=== PATIENT | male | born 1990 | race Caucasian/White ===

== ENCOUNTER → 2018-09-20 | Day surgery (SDC) | payer OTHER ==
[2018-09-17 12:28] LABS: BASOPHILS % 0.2 % (0.0-1.0); EOSINOPHILS # (AUTO) 0.1 (0.0-0.4); EOSINOPHILS % 2.1 % (0.0-6.0); HEMATOCRIT 43.6 % (38.2-49.6); HEMOGLOBIN 15.2 g/dL (14.0-18.0); LYMPHOCYTES # (AUTO) 2.1 (1.0-3.2); LYMPHOCYTES % 37.6 % (18.0-39.1); MEAN CORPUSCULAR HEMOGLOBIN 30.8 pg (28-32); MEAN CORPUSCULAR HGB CONC 34.9 g/dL (31-35); MEAN CORPUSCULAR VOLUME 88.4 fL (81-99); MONOCYTES # (AUTO) 0.6 (0.2-0.8); MONOCYTES % 10.3 % (4.4-11.3); NEUTROPHILS # (AUTO) 2.8 (2.1-6.9); NEUTROPHILS % 49.6 % (38.7-80.0); PLATELET COUNT 246 x10e3/uL (140-360); RED BLOOD COUNT 4.93 x10e6/uL (4.3-5.7); RED CELL DISTRIBUTION WIDTH 12.2 % (11.7-14.4)
[2018-09-17 13:07] LABS: BLOOD UREA NITROGEN 13 mg/dL (7-26); BUN/CREATININE RATIO 15 (6-25); CALCIUM 9.4 mg/dL (8.4-10.2); CARBON DIOXIDE 29 mmol/L (22-29); CHLORIDE 100 mmol/L (98-107); CREATININE, SERUM 0.88 mg/dL (0.72-1.25); EST GLOMERULAR FILTRATION RATE > 60 ML/MIN (60-); GLUCOSE 84 mg/dL (74-118); SODIUM 137 mmol/L (136-145)
[~2018-09-20] MED LIST: ACETAMINOPHEN500 M1 PO; BUPIVACAINE 0.5%/EPI 30 ML SDV INJ ONE; DEXAMETHASONE SOD PHOS INJ 4 MG/ML VIAL ONE; FENTANYL CITRATE/PF 100MCG/2 ML INJ ONE; IBUPROFEN200 MG PO; KETOROLAC TROMETHAMINE 30 MG/ML VIAL ONE; LIDOCAINE HCL 2% LOCAL INJ 5 ML SDV VIAL INJ ONE; MIDAZOLAM HCL 2 MG/2 ML VIAL ONE; ONDANSETRON HCL INJ 2MG/ML 2ML 2 MG/ML VIAL ONE; PROPOFOL IV EMULSION 10 MG/ML 20 ML VIAL ONE; ROCURONIUM BROMIDE 10 MG/ML 5ML VIAL ONE; SEVOFLURANE INHAL SOLN 250 ML PEN BTL ONE
--- OUTSIDE RECORDS SUMMARY | 2018-09-20 07:13 | XMS REPORT | Clinical Summary ---
Author Author Carlos Robledo Organization [facility] Address Unknown Phone Unavailable Care Team Providers Care Cloth Bleaching Supervisor Name Role Phone PCP Unavailable Allergies Not on File Medications Not on file Active Problems Not on file Encounters Care Team Description Date Type Specialty 05/09/2018 Clinical Corporate Wellness Support after 09/19/2017 Immunizations Name Dates Previously Given Next Due FLUCELVAX QUAD PF (0.5mL 05/09/2018 syringe) Social History Date Tobacco Use Types Packs/Day Years Used Never Assessed Sex Assigned at Date Recorded Not on file Industry Job Start Date Occupation Not on file Not on file Not on file Travel End Travel History Travel Start No recent travel history available. Last Filed Vital Signs Not on file Plan of Treatment Health Maintenance Due Date Last Done Comments INFLUENZA VACCINE Completed 05/09/2018 Results Not on fileafter 09/19/2017 Insurance Payer Benefit Subscriber ID Type Phone Address Plan / Group BCBS BCBS xxxxxxxxxxxx PPO CHOICE PPO/AVERY VAZQUEZ PPO Advance Directives Patient has advance care planning documents on file. For more information, robbie galan contact: Carlos Robledo [address] [place] [address]
--- NOTE | 2018-09-20 11:25 | Operative Report ---
DATE OF PROCEDURE: September 20, 2018 PREOPERATIVE DIAGNOSIS: Recurrent right inguinal hernia. POSTOPERATIVE DIAGNOSIS: Recurrent right inguinal hernia. PROCEDURE PERFORMED: Repair of right inguinal hernia, excision of retroperitoneal/right inguinal cord lymph node. ANESTHESIA: General. ESTIMATED BLOOD LOSS: Minimal. DRAINS: None. COMPLICATIONS: None. INDICATIONS AND FINDINGS: Patient is a pleasant 28-year-old male who, while doing heavy lifting at work several weeks ago, developed a painful bulge. Examination revealed a right inguinal hernia that was reducible. The patient had undergone as a baby repair of right inguinal hernia many years ago. INTRAOPERATIVE FINDINGS: The patient had a pantaloon type of hernia with a sac that was empty and in addition to that there was a direct component with weakness of the entire floor. In addition to this, there was a lymph node that was somewhat enlarged in the area of the preperitoneal space along the cord and that lymph node was excised. DESCRIPTION OF PROCEDURE: With the patient lying on the operative table in the supine position after the administration of general anesthesia, he was prepped and draped for repair of right inguinal hernia. Preemptive anesthesia was given 0.25% Marcaine with epinephrine as an ilioinguinal nerve block and an incisional nerve block. A transverse groin incision was made deep into the skin and subcutaneous tissue, Gary fascia until the external oblique aponeurosis was identified. This was incised along the course of its fibers transecting the external inguinal ring. Mid and lateral layers were developed. The cord was mobilized at the level of the pubic tubercle and retracted away from the operative field by a Gil drain. The cremaster layer was incised and indirect hernia sac was somewhat thick and was found highly ligated with 0 Vicryl. A lymph node about 1.5 cm that looked abnormal, located next to the cord in the preperitoneal space area, was excised and tied off with with 2-0 Vicryl and sent for pathological examination. After we did that, then we incised the transversalis fascia, created a pocket using blunt dissection to accommodate the mesh, and then we secured the mesh to the local tissues using a series of interrupted 2-0 Ethibond sutures. The wound was irrigated. Bleeding points were cauterized. The wound was closed in layers using 2-0 Vicryl for the external oblique aponeurosis, 2-0 catgut for the soft tissues, and the skin was closed using nataly. Sterile dressing was applied. The patient tolerated the procedure well, was taken to the recovery room in stable condition. Job#: [id number] TARA
[2018-09-20 11:50] VITALS: BP 110/72
== END | disposition home or self-care (01) ==
LOC: OR 07:10
PROVIDERS: ATTEND Surgery
DX: K40.91 Unilateral inguinal hernia, without obstruction or gangrene, recurrent (principal); Z88.1 Allergy status to other antibiotic agents; F17.210 Nicotine dependence, cigarettes, uncomplicated; Z01.812 Encounter for preprocedural laboratory examination
CPT/HCPCS: 36415; 49520; 80048; 85025; 88302; 88305; C1781; J1100; J1885; J2001; J2250; J2405; J2704; 88304